=== PATIENT | male | born 1990 | race African-American/Black ===

== ENCOUNTER 2018-02-26 09:02 | Emergency (ER) | payer SELFPAY ==
[2018-02-26] MEDS ORDERED: KETOROLAC TROMETHAMINE 60 MG/2 ML VIAL ONE (09:21)
[2018-02-26] MEDS ORDERED: DEXAMETHASONE SOD PHOSPHATE 10MG/ML 1ML VIAL ONE (09:21)
[2018-02-26 09:53] LABS: RAPID GROUP A STREP NEGATIVE (NEGATIVE)
== END 2018-02-26 10:27 | disposition home or self-care (01) ==
LOC: EDH 09:02
DX: J02.9 Acute pharyngitis, unspecified (principal); Z72.0 Tobacco use
CPT/HCPCS: 87804 ×2; 87880; 96372 ×2; 99284; J1100; J1885